=== PATIENT | female | born 1965 | race Caucasian/White ===

== ENCOUNTER → 2018-01-05 09:12 | Outpatient (CLI) | payer OTHER, SELFPAY ==
--- NOTE | 2018-01-05 | DI.RAD.S_ITS ---
PROCEDURE: XR CHEST 2V INDICATIONS: Malignant neoplasm of endometrium TECHNIQUE: 2 views of the chest were acquired. COMPARISON: [facility], , CHEST 1 VIEW, 09/03/2017, 12:42. FINDINGS: Surgical changes and devices: Left-sided port with tip overlying the atrial caval junction. Lateral loop in the tubing is no longer seen and the port may have been revised since last exam. Lungs and pleura: No pleural effusions or pneumothorax. Lungs are clear. Mediastinum: Mediastinal contours are normal. Heart size is normal. Bones and chest wall: No suspicious bony abnormalities. Soft tissues appear unremarkable. IMPRESSION: No acute cardiopulmonary abnormality. Left-sided port appears intact. Dictated by: Flash Robins M.D. on 01/05/2018 at 9:44 Approved by: Flash Robins M.D. on 01/05/2018 at 9:47
== END ==
PROVIDERS: PCP Family Medicine; Visit Provider Nurse Practitioner Gerontology
DX: C54.1 Malignant neoplasm of endometrium (principal)
CPT/HCPCS: 71046

== ENCOUNTER → 2018-01-07 07:40 | Outpatient (CLI) | payer OTHER, SELFPAY ==
--- NOTE | 2018-01-07 | DI.RAD.S_ITS ---
PROCEDURE: FL CATHETER PATENCY COMPARISON: [facility], [place], XR CHEST 2V, 01/05/2018, 9:04. INDICATIONS: PORT NOT FUNCTIONING FINDINGS: Imaging of the catheters shows no kinks. Tip of the catheter appears to be in the atrium however recent prior chest x-ray shows the tip at the atrial caval junction. With injection of contrast material, there is no extravasation at the port and the catheter is patent with flow away from the catheter tip documented. Blood was evident on aspiration after the injection. Catheter was then flushed by the attending nurse. IMPRESSION: Normal catheter patency Dictated by: Flash Robins M.D. on 01/07/2018 at 8:50 Approved by: Flash Robins M.D. on 01/07/2018 at 8:53
== END ==
PROVIDERS: PCP Family Medicine; Visit Provider Surgery
DX: Z45.2 Encounter for adjustment and management of vascular access device (principal)
CPT/HCPCS: 76000

== ENCOUNTER → 2018-01-27 09:12 | Outpatient (CLI) | payer OTHER, SELFPAY ==
[2018-01-27 10:33] LABS: Alanine Aminotransferase 69 IU/L (9-52); Albumin 4.5 g/dL (3.5-5.0); Albumin Globulin Ratio 1.3 (1.0-2.8); Alkaline Phosphatase 157 U/L (38-126); Aspartate Aminotransferase 54 IU/L (14-36); BUN Creatinine Ratio 21.7 (6-22); Bilirubin Total 1.2 mg/dL (0.2-1.3); Blood Urea Nitrogen 13 mg/dL (7-17); Calcium 9.1 mg/dL (8.4-10.2); Carbon Dioxide 30 mmol/L (22-32); Chloride 95 mmol/L (98-107); Cholesterol 250 mg/dL (140-199); Estimated Glomerular Filt Rate > 60.0 mL/min (>60); Globulin 3.4 g/dL (1.7-4.1); Glucose 286 mg/dL (70-100); HDL Cholesterol 37 mg/dL (40-60); HEMOLYSIS < 15 (0-50); Potassium 3.9 mmol/L (3.4-5.1); Sodium 135 mmol/L (137-145); Total Protein 7.9 g/dL (6.3-8.2); Triglycerides 490 mg/dL (35-150)
== END ==
PROVIDERS: PCP Family Medicine; Visit Provider Family Medicine
DX: R73.9 Hyperglycemia, unspecified (principal); E78.5 Hyperlipidemia, unspecified
CPT/HCPCS: 36415; 80053; 80061; 83036

== ENCOUNTER → 2018-03-10 09:47 | Outpatient (CLI) | payer OTHER, SELFPAY ==
--- NOTE | 2018-03-10 10:36 | DI.CT.S_ITS ---
PROCEDURE: CT ABDOMEN PELVIS W CON INDICATIONS: measure response to treatment. Restaging ovarian cancer TECHNIQUE: After the administration of oral and intravenous contrast, 5 mm thick sections acquired from the diaphragms to the symphysis. 5 mm thick coronal and sagittal reformats were performed. For radiation dose reduction, the following was used: automated exposure control, adjustment of mA and/or kV according to patient size. COMPARISON: [facility], CT, ABDOMEN/PELVIS WITH CONTRAST, 05/06/2017, 8:04. [facility], [place], PET/CT SKULL BASE TO MID THIGH, 07/18/2017, 9:52. FINDINGS: Image quality: Excellent. ABDOMEN: Lung bases: Lung bases are clear. Heart size is normal. Solid organs: Liver is enlarged and demonstrates diffusely decreased density, indicating fatty infiltration. Gallbladder is partially decompressed. Biliary system is non-dilated. Pancreas enhances normally. Spleen is normal in size and enhancement. No adrenal nodules. Kidneys are normal in size and enhancement, without hydronephrosis. Peritoneum and bowel: Stomach, small bowel, and colon loops are normal in caliber and wall thickness. No free fluid or air. Normal appendix. Nodes and vessels: No retroperitoneal or mesenteric adenopathy. Aorta and inferior vena cava are normal in caliber. Miscellaneous: No ventral hernias. PELVIS: Genitourinary: Bladder wall thickness is normal. There are 2 new cystic foci within the left adnexa measuring 28 mm and 16 mm. There is a 13 mm cystic focus within the right adnexa. Status post hysterectomy. Miscellaneous: No inguinal hernias or adenopathy. Bones: No suspicious bony lesions. No change in sclerosis adjacent to the left sacroiliac joint. No vertebral body compression fractures. IMPRESSION: 1. Cystic low-density bilateral adnexal foci. If the patient is status post oophorectomy, these should be treated as recurrent malignancy until proven otherwise. However, if the ovaries have not been resected, follicular cysts could produce this appearance, and could be followed up with a 6 week ultrasound. 2. Hepatic stent stenosis. 3. No change in left sacroiliitis. Dictated by: Lynn Martines M.D. on 03/10/2018 at 11:20 Approved by: Lynn Martines M.D. on 03/10/2018 at 11:25
== END ==
PROVIDERS: PCP Family Medicine; Visit Provider Internal Medicine Hematology & Oncology
DX: C54.1 Malignant neoplasm of endometrium (principal)
CPT/HCPCS: 74177; Q9967

== ENCOUNTER → 2018-04-21 14:55 | Outpatient (CLI) | payer OTHER, SELFPAY ==
[2018-04-21 15:49] LABS: Add Manual Diff / Slide Review NO; Basophils Percent Auto 0.2 % (0-2); Eosinophils Percent Auto 4.5 % (2-4); Hematocrit 31.4 % (36-46); Hemoglobin 10.8 g/dL (12.0-16.0); Lymphocytes Percent Auto 15.7 % (25-40); Mean Corpuscular HGB Conc 34.3 % (30-36); Mean Corpuscular Volume 93.5 fL (80-100); Monocytes Percent Auto 8.2 % (3-14); Neutrophils Absolute Auto 2900 /uL (3000-5900); Neutrophils Percent Auto 71.4 % (50-75); Platelet Count 215 X10^3/uL (150-400); Red Blood Cell Count 3.36 X10^6/uL (4.0-5.2); Red Cell Distribution Width 16.8 % (11.6-14.8); White Blood Cell Count 4.1 X10^3/uL (4.5-11.0)
[2018-04-21 15:50] LABS: HEMOLYSIS < 15 (0-50)
[2018-04-21 15:57] LABS: BUN Creatinine Ratio 21.7 (6-22); Blood Urea Nitrogen 13 mg/dL (7-17); Calcium 9.3 mg/dL (8.4-10.2); Carbon Dioxide 29 mmol/L (22-32); Chloride 100 mmol/L (98-107); Estimated Glomerular Filt Rate > 60.0 mL/min (>60); Glucose 171 mg/dL (70-100); Potassium 3.6 mmol/L (3.4-5.1); Sodium 140 mmol/L (137-145)
[2018-04-21 17:10] LABS: HEMOLYSIS < 15 (0-50); Iron 67 ug/dL (37-170)
[2018-04-21 17:22] LABS: Percent Iron Saturation 21 % (15-50); Total Iron Binding Capacity 315 ug/dL (265-497); Transferrin 262 mg/dL (206-381)
--- NOTE | 2018-04-23 14:38 | PC.NURSE ---
ADDENDUM FROM [employer]/[facility] RESULTS OF MLH1 METHYLATION AND BRAF V600F FAXED TO DR. MANCINI AT @ [employer] [phone] ON 04/23/2018.
== END ==
PROVIDERS: PCP Family Medicine; Visit Provider Internal Medicine Hematology & Oncology
DX: C56.9 Malignant neoplasm of unspecified ovary (principal); D64.81 Anemia due to antineoplastic chemotherapy
CPT/HCPCS: 36415; 80048; 82728; 83540; 83550; 85025

== ENCOUNTER 2018-05-20 08:14 | Day surgery (SDC) | payer OTHER, SELFPAY ==
[2018-05-13 12:45] VITALS: BMI 42.6
[2018-05-20] VITALS (8 sets, daily range): BP systolic 101–119; BP diastolic 63–77; PULSE 79–90; RESP 10–18; TEMP 36.1–37.1; O2SAT 95–99; BMI 40.0
--- NOTE | 2018-05-20 10:05 | PM.HP.1 ---
History of Present Illness Date Patient Seen: 05/20/18 Time Patient Seen: 10:05 Chief complaint: [id number] PORT-A-CATH REMOVAL *[id number]* Narrative: Wonderful 52-year-old lady who is known to me from prior visits. 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 She desires to have her power port removed today. She denies any pain in her chest. She does have 1 radiation treatment to go on Friday. Patient History Medical History Adenocarcinoma (Acute) Asthma (Acute) Chronic cough (Acute) Endometriosis (Acute) Exercise-induced asthma (Acute) Frequent common colds (Acute) H/O wisdom tooth extraction (Acute) Heartburn (Acute) History of cellulitis (Acute) History of deviated nasal septum (Acute) Art syndrome (Acute) Morbid obesity (Acute) Port-A-Cath in place (Acute) Rash (Acute) Sinus drainage (Acute) Stress incontinence (Acute) Surgical History H/O bilateral oophorectomy (Acute ~08/04/17) H/O myomectomy (Acute ~12/2016) History of abdominal surgery (Acute ~1995) History of biopsy (Acute) S/P laparoscopic supracervical hysterectomy (Acute ~12/2016) Status post excisional biopsy (Acute) Family & Social History Family History: Reviewed 05/20/18 by Yissel Ambrosio MD Social History: household members spouse Tobacco & Substance use: Smoking Status Never smoker Meds Home Medications Medication Instructions Recorded Confirmed Type albuterol sulfate [Ventolin HFA] 2 puff INH Q2-6H PRN #0 MDD 325 11/26/16 05/13/18 History beclomethasone dipropionate [Qvar] 1 puff INH QDAY #0 11/26/16 05/20/18 History montelukast [Singulair] 10 mg PO HS #0 11/26/16 05/20/18 History acetaminophen 650 mg PO PRN PRN #0 05/19/17 05/13/18 History ranitidine HCl 150 mg PO DAILY PRN 01/19/18 05/13/18 History metformin 1,000 mg PO BID 02/09/18 05/20/18 History ondansetron 8 mg SUBLINGUAL Q6HP PRN #30 tab 02/09/18 05/13/18 Rx Allergies Allergy/AdvReac Type Severity Reaction Status Date / Time gold Au 198 Allergy Severe Rash Verified 05/13/18 13:04 nickel [NICKEL] Allergy Severe CONTACT Verified 05/13/18 13:04 DERMATITIS quaternium 15 [QUATERNIUM 15] Allergy Severe CONTACT Verified 05/13/18 13:04 DERMATITIS Sulfa (Sulfonamide Allergy Severe hives Verified 05/13/18 13:04 Antibiotics) [SULFA (SULFONAMIDE ANTIBIOTICS)] Review of Systems Review of Systems All systems reviewed & are unremarkable except as noted in HPI and below Exam Vital Signs (past 8 hours): - 05/20/18 08:37 Temperature 98.8 F Pulse Rate 87 Respiratory Rate 18 Blood Pressure 108/69 Pulse Oximetry 96 Oxygen Delivery Method Room Air Narrative Exam Narrative: Pleasant 52 a lady in no obvious distress HEENT: Normocephalic and atraumatic, pupils equal round reactive to light accommodation with anicteric sclera Lungs: Clear to auscultation bilaterally Heart: Regular rate and rhythm without murmur rub or gallop Abdomen: Soft, radiation skin changes are noted including a couple of open but superficial lesions. No evidence of gross infection or inflammation. Extremities: Warm and well perfused and without edema Assessment & Plan Plan: Assessment/Plan Narrative: Matilde has completed her treatment and no longer requires her [id number]-Xycm. We discussed the risks and benefits of removing it today the operating room and she has expressed a desire to complete the procedure
--- NOTE | 2018-05-20 10:07 | SUR.OPER ---
Supine on padded OR bed, head on pillow, arms secured on padded arm boards at <90 degrees abduction, legs uncrossed, safety belt at thigh, tape over blanket over lower legs.
--- NOTE | 2018-05-20 10:09 | P.HP_ITS ---
History of Present Illness Date Patient Seen: 05/20/18 Time Patient Seen: 10:05 Chief complaint: [id number] PORT-A-CATH REMOVAL *[id number]* Narrative: Wonderful 52-year-old lady who is known to me from prior visits. 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 She desires to have her power port removed today. She denies any pain in her chest. She does have 1 radiation treatment to go on Friday. Patient History Medical History Adenocarcinoma (Acute) Asthma (Acute) Chronic cough (Acute) Endometriosis (Acute) Exercise-induced asthma (Acute) Frequent common colds (Acute) H/O wisdom tooth extraction (Acute) Heartburn (Acute) History of cellulitis (Acute) History of deviated nasal septum (Acute) Art syndrome (Acute) Morbid obesity (Acute) Port-A-Cath in place (Acute) Rash (Acute) Sinus drainage (Acute) Stress incontinence (Acute) Surgical History H/O bilateral oophorectomy (Acute ~08/04/17) H/O myomectomy (Acute ~12/2016) History of abdominal surgery (Acute ~1995) History of biopsy (Acute) S/P laparoscopic supracervical hysterectomy (Acute ~12/2016) Status post excisional biopsy (Acute) Family & Social History Family History: Reviewed 05/20/18 by Yissel Ambrosio MD Social History: household members spouse Tobacco & Substance use: Smoking Status Never smoker Meds Home Medications Medication Instructions Recorded Confirmed Type albuterol sulfate [Ventolin HFA] 2 puff INH Q2-6H PRN #0 MDD 325 11/26/1605/13 History beclomethasone dipropionate [Qvar] 1 puff INH QDAY #0 11/26/16 05/20/18 History montelukast [Singulair] 10 mg PO HS #0 11/26/16 05/20/18 History acetaminophen 650 mg PO PRN PRN #0 05/19/17 05/13/18 History ranitidine HCl 150 mg PO DAILY PRN 01/19/18 05/13/18 History metformin 1,000 mg PO BID 02/09/18 05/20/18 History ondansetron 8 mg SUBLINGUAL Q6HP PRN #30 tab 02/09/18 05/13/18 Rx Allergies Allergy/AdvReac Type Severity Reaction Status Date / Time gold Au 198 Allergy Severe Rash Verified 05/13/18 13:04 nickel [NICKEL] Allergy Severe CONTACT Verified 05/13/18 13:04 DERMATITIS quaternium 15 [QUATERNIUM 15] Allergy Severe CONTACT Verified 05/13/18 13:04 DERMATITIS Sulfa (Sulfonamide Allergy Severe hives Verified 05/13/18 13:04 Antibiotics) [SULFA (SULFONAMIDE ANTIBIOTICS)] Review of Systems Review of Systems All systems reviewed & are unremarkable except as noted in HPI and below Exam Vital Signs (past 8 hours): - 05/20/18 08:37 Temperature 98.8 F Pulse Rate 87 Respiratory Rate 18 Blood Pressure 108/69 Pulse Oximetry 96 Oxygen Delivery Method Room Air Narrative Exam Narrative: Pleasant 52 a lady in no obvious distress HEENT: Normocephalic and atraumatic, pupils equal round reactive to light accommodation with anicteric sclera Lungs: Clear to auscultation bilaterally Heart: Regular rate and rhythm without murmur rub or gallop Abdomen: Soft, radiation skin changes are noted including a couple of open but superficial lesions. No evidence of gross infection or inflammation. Extremities: Warm and well perfused and without edema Assessment & Plan Plan: Assessment/Plan Narrative: Matilde has completed her treatment and no longer requires her [id number]. We discussed the risks and benefits of removing it today the operating room and she has expressed a desire to complete the procedure
[2018-05-20] MEDS: LIDOCAINE 1% W/EPI INJ 20 ML INJ (10:23)
[2018-05-20] MEDS: BUPIVACAINE 0.5% (PF) VIAL 10 ML INJ (10:24)
[2018-05-20] MEDS: CEFAZOLIN 2 GM/100 ML FROZ.PIGGY IV (10:29)
--- NOTE | 2018-05-20 10:59 | PM.OP.1 ---
Operative Date/Time/Diagnoses Date of procedure: 05/20/18 Time of procedure: 10:59 Pre-op diagnosis: Uterine cancer Post-op diagnosis: same Procedure & Clinicians Procedure: Power port removed Same procedure as scheduled: Yes Indications: Chemotherapy completed Surgeon: Yissel Ambrosio Anesthesia Type: General (Dr. Swartz) Operative Notes Findings: Power port in good repair Closure Type: primary Estimated Blood Loss (mL): 2 Procedure in detail: After obtaining informed consent, the patient was brought to the operating room and placed in the supine position on the operating table. Following successful induction of IV sedation with monitored anesthesia care, the chest was prepped and draped in the standard surgical fashion. A timeout was held per SCOAP protocol. Following infiltration with local anesthetic to create a field block, the existing healed incision was repeated. This was carried down through the skin and subcutaneous tissue to reveal the tubing of the implanted central venous device. The tubing was carefully dissected free from surrounding structures and delivered into the field. Pressure was held at the deltopectoral groove to prevent air embolus and backbleeding. After 5 minutes time, we continued with dissection of the remaining portion of the port. The reservoir itself remained in the pocket and has been incorporated into the tissue. This was carefully dissected free with judicious use of a scalpel. It was delivered into the field as a single piece with tubing attached. The incision was checked for hemostasis and irrigated with warm saline solution. Once we were satisfied that all was clean and dry, it was closed in 2 layers with Vicryl Monocryl sutures. Dermabond was applied to the skin incision. All sponge, needle, and instrument counts were correct at the conclusion of the case. The patient was allowed to awaken from sedation without difficulty and taken to the post anesthesia care unit in good condition. Complications: none Condition: stable Disposition: PACU Plan for aftercare: 1. Discharge to home 2. Follow up with me as needed
== END 2018-05-20 11:40 | disposition home or self-care (01) ==
PROVIDERS: PCP Family Medicine; Visit Provider Surgery
PROC: (CPT 36590; principal; 2018-05-20 09:15)
DX: Z45.2 Encounter for adjustment and management of vascular access device (principal); C55 Malignant neoplasm of uterus, part unspecified; J45.909 Unspecified asthma, uncomplicated; E11.9 Type 2 diabetes mellitus without complications; Z79.84 Long term (current) use of oral hypoglycemic drugs
CPT/HCPCS: 36590; J0690; J2250; J2704; J3010

== ENCOUNTER → 2018-07-31 13:07 | Outpatient (CLI) | payer OTHER, SELFPAY ==
--- NOTE | 2018-07-31 | DI.RAD.S_ITS ---
This blank DEXA report has been sent in error by the PACS system. The correct and complete report will be forthcoming in 1-2 days. Thank you for your patience and understanding. Dictated by: Teagan Swift MD, PhD on 08/01/2018 at 9:29 Approved by: Teagan Swift MD, PhD on 08/01/2018 at 9:29
== END ==
PROVIDERS: Family Provider Family Medicine; PCP Family Medicine; Visit Provider Family Medicine
DX: C54.1 Malignant neoplasm of endometrium (principal); Z78.0 Asymptomatic menopausal state; K52.0 Gastroenteritis and colitis due to radiation; Z90.722 Acquired absence of ovaries, bilateral
CPT/HCPCS: 77080

== ENCOUNTER → 2018-08-24 14:08 | Outpatient (CLI) | payer OTHER, SELFPAY ==
--- NOTE | 2018-08-24 | DI.MG.S_ITS ---
BILATERAL DIGITAL SCREENING MAMMOGRAM 3D/2D WITH CAD: 08/24/2018 CLINICAL: Routine screening. Comparison is made to exams dated: 11/13/2016 mammogram and 11/07/2014 mammogram - [facility]. There are scattered fibroglandular elements in both breasts. Current study was also evaluated with a Computer Aided Detection (CAD) system. No significant masses, calcifications, or other findings are seen in either breast. There has been no significant interval change. IMPRESSION: NEGATIVE There is no mammographic evidence of malignancy. A 1 year screening mammogram is recommended. This exam was interpreted at Station ID: [id number]. NOTE: For mammograms, a report in lay terms will be sent to the patient. Approximately 15% of breast malignancies will not be visualized mammographically. In the management of a palpable breast mass, a negative mammogram must not discourage biopsy of a clinically suspicious lesion. Electronically Signed By: Cinda ellis/lionel:08/24/2018 16:17:43 copy to: ANISH MURILLO letter sent: Normal Exam ACR BI-RADS Category 1: Negative [id number]
--- NOTE | 2018-08-24 14:11 | DI.CT.S_ITS ---
PROCEDURE: CT CHEST ABD PEL W CON INDICATIONS: restage TECHNIQUE: After the administration of oral and intravenous contrast, 5 mm thick sections acquired from the lung apices to the symphysis. 5 mm coronal and sagittal reformats were performed, with additional 7 mm coronal MIP reformats through the lungs. For radiation dose reduction, the following was used: automated exposure control, adjustment of mA and/or kV according to patient size. COMPARISON: [facility], CT, THORAX WITH CONTRAST, 06/19/2017, 7:02. [facility], [place], PET NECK TO MID THIGH, 03/27/2018, 9:44. [facility], CT, CT ABDOMEN PELVIS WITH CONTRAST, 03/19/2018, 16:09. FINDINGS: Image quality: Excellent. CHEST: Lungs and pleura: No acute airspace opacities. No pleural effusions or pneumothorax. Central and peripheral airways appear patent and normal in caliber. Mediastinum: Heart size is normal. No pericardial effusion. No mediastinal or hilar adenopathy by size criteria. Thoracic aorta and central pulmonary arteries are normal in size. Esophagus is normal in caliber. No hiatal hernia. Chest wall: No axillary or supraclavicular adenopathy by size criteria. Thyroid gland is unremarkable. ABDOMEN: Solid organs: Liver is enlarged with steatosis. Gallbladder is contracted but grossly unremarkable. Biliary system is non dilated. Pancreas enhances normally. Spleen is normal in size and enhancement. No adrenal nodules. Kidneys demonstrate normal size and enhancement, without hydronephrosis. Peritoneum and bowel: Bowel loops demonstrate normal wall thickness and caliber. No free fluid or air. Nodes and vessels: No retroperitoneal or mesenteric adenopathy by size criteria. Aorta and inferior vena cava are normal in size. Miscellaneous: Fat-containing umbilical hernia is present. PELVIS: Genitourinary: Bladder wall thickness is normal. Miscellaneous: No inguinal hernias or adenopathy. Bones: No suspicious bony lesions. No vertebral body compression fractures. IMPRESSION: 1. Low-attenuation bilateral pelvic sidewall foci, unchanged compared to prior exam. 2. Unchanged bilateral low-attenuation pelvic sidewall foci as above. As previously identified, these could represent areas of seroma or potential recurrent malignancy. Dictated by: Shanice Kaminski M.D. on 08/24/2018 at 16:15 Approved by: Shanice Kaminski M.D. on 08/24/2018 at 16:19
[2018-08-24 14:25] LABS: Add Manual Diff / Slide Review NO; Basophils Absolute Auto 0 /uL (0-100); Basophils Percent Auto 0.6 % (0-2); Eosinophils Absolute Auto 300 /uL (0-450); Eosinophils Percent Auto 4.4 % (2-4); Hematocrit 35.7 % (36-46); Hemoglobin 11.8 g/dL (12.0-16.0); Lymphocytes Absolute Auto 900 /uL (1100-4500); Lymphocytes Percent Auto 14.3 % (25-40); Mean Corpuscular Hemoglobin 29.3 PG (26-34); Mean Corpuscular Volume 88.8 fL (80-100); Monocytes Absolute Auto 500 /uL (0-900); Monocytes Percent Auto 8.9 % (3-14); Neutrophils Absolute Auto 4400 /uL (1500-7000); Neutrophils Percent Auto 71.8 % (50-75); Platelet Count 308 X10^3/uL (150-400); Red Blood Cell Count 4.02 X10^6/uL (4.0-5.2); Red Cell Distribution Width 15.9 % (11.6-14.8); White Blood Cell Count 6.2 X10^3/uL (4.5-11.0)
[2018-08-24 14:42] LABS: Alanine Aminotransferase 48 IU/L (9-52); Albumin 4.6 g/dL (3.5-5.0); Albumin Globulin Ratio 1.4 (1.0-2.8); Alkaline Phosphatase 107 U/L (38-126); Aspartate Aminotransferase 33 IU/L (14-36); BUN Creatinine Ratio 23.3 (6-22); Bilirubin Total 0.4 mg/dL (0.2-1.3); Blood Urea Nitrogen 14 mg/dL (7-17); Calcium 9.3 mg/dL (8.4-10.2); Carbon Dioxide 26 mmol/L (22-32); Chloride 101 mmol/L (98-107); Estimated Glomerular Filt Rate > 60.0 mL/min (>60); Globulin 3.2 g/dL (1.7-4.1); Glucose 129 mg/dL (70-100); HEMOLYSIS < 15 (0-50); Potassium 3.7 mmol/L (3.4-5.1); Sodium 138 mmol/L (137-145); Total Protein 7.8 g/dL (6.3-8.2)
[2018-08-24 15:12] LABS: Cancer Antigen 125 < 6 U/mL (0-35)
== END ==
PROVIDERS: Internal Medicine Hematology & Oncology; Family Provider Family Medicine; PCP Family Medicine; Visit Provider Family Medicine
DX: C54.1 Malignant neoplasm of endometrium (principal); Z12.31 Encounter for screening mammogram for malignant neoplasm of breast; D25.9 Leiomyoma of uterus, unspecified; K76.0 Fatty (change of) liver, not elsewhere classified; K42.9 Umbilical hernia without obstruction or gangrene
CPT/HCPCS: 36415; 71260; 74177; 77063; 77067; 80053; 85025; 86304; Q9967

== ENCOUNTER → 2018-10-23 08:29 | Outpatient (CLI) | payer OTHER, SELFPAY ==
[2018-10-23 09:13] LABS: Hemoglobin A1C% w Est Avg Glu 6.3 % (4.0-6.0)
[2018-10-23 09:53] LABS: Add Manual Diff / Slide Review NO; Basophils Absolute Auto 0 /uL (0-100); Basophils Percent Auto 0.3 % (0-2); Eosinophils Absolute Auto 300 /uL (0-450); Eosinophils Percent Auto 6.5 % (2-4); Hematocrit 36.4 % (36-46); Hemoglobin 12.1 g/dL (12.0-16.0); Lymphocytes Absolute Auto 700 /uL (1100-4500); Mean Corpuscular HGB Conc 33.2 % (30-36); Mean Corpuscular Volume 87.2 fL (80-100); Monocytes Absolute Auto 500 /uL (0-900); Neutrophils Absolute Auto 3600 /uL (1500-7000); Neutrophils Percent Auto 70.2 % (50-75); Platelet Count 296 X10^3/uL (150-400); Red Blood Cell Count 4.17 X10^6/uL (4.0-5.2); Red Cell Distribution Width 15.6 % (11.6-14.8); White Blood Cell Count 5.2 X10^3/uL (4.5-11.0)
[2018-10-23 10:06] LABS: TSH w/ Reflex to FT4 2.47 uIU/mL (0.47-4.68)
== END ==
PROVIDERS: PCP Family Medicine; Visit Provider Family Medicine
DX: E78.5 Hyperlipidemia, unspecified (principal); E11.9 Type 2 diabetes mellitus without complications; Z00.00 Encounter for general adult medical examination without abnormal findings
CPT/HCPCS: 36415; 83036; 84443; 85025

== ENCOUNTER → 2018-12-01 15:15 | Outpatient (CLI) | payer OTHER, SELFPAY ==
--- NOTE | 2018-12-01 15:17 | DI.CT.S_ITS ---
PROCEDURE: CT CHEST ABD PEL W CON INDICATIONS: ovary endometrial cancer, restaging TECHNIQUE: After the administration of oral and intravenous contrast, 5 mm thick sections acquired from the lung apices to the symphysis. 5 mm coronal and sagittal reformats were performed, with additional 7 mm coronal MIP reformats through the lungs. For radiation dose reduction, the following was used: automated exposure control, adjustment of mA and/or kV according to patient size. COMPARISON: [facility], [place], PET NECK TO MID THIGH, 03/27/2018, 9:44. [facility], CT, CT ABDOMEN PELVIS WITH CONTRAST, 03/19/2018, 16:09. [facility], CT, CT ABDOMEN PELVIS W CON, 03/10/2018, 10:49. [facility], [place], PET/CT SKULL BASE TO MID THIGH, 07/18/2017, 9:52. [facility], CT, CT CHEST ABD PEL W CON, 08/24/2018, 15:12. FINDINGS: Image quality: Excellent. CHEST: Lungs and pleura: No acute consolidation. No pleural effusions or pneumothorax. Central and peripheral airways appear patent and normal in caliber. Mediastinum: Heart size is normal. No pericardial effusion. No mediastinal or hilar adenopathy by size criteria. Thoracic aorta and central pulmonary arteries are normal in size. Esophagus is normal in caliber. No hiatal hernia. Chest wall: No axillary or supraclavicular adenopathy by size criteria. Thyroid gland negative. ABDOMEN: Solid organs: Hepatic steatosis is present. No focal hepatic lesion identified. Gallbladder unremarkable. Biliary system is non dilated. Pancreas enhances normally. Spleen is normal in size and enhancement. No adrenal nodules. Kidneys demonstrate normal size and enhancement, without hydronephrosis. Peritoneum and bowel: Bowel loops demonstrate normal wall thickness and caliber. No free fluid or air. Nodes and vessels: No retroperitoneal or mesenteric adenopathy by size criteria. Aorta and inferior vena cava are normal in size. Miscellaneous: No ventral hernias. PELVIS: Genitourinary: Bladder wall thickness is normal. Previous identified low attenuation bilateral external iliac lesions are unchanged in size and appearance. Miscellaneous: No inguinal hernias or adenopathy. Bones: No suspicious bony lesions. No vertebral body compression fractures. IMPRESSION: Overall, stable examination since 08/24/18 Unchanged appearance of bilateral external iliac low attenuation lesions since the prior study. Elsewhere, no evidence of active metastatic disease. Hepatic steatosis. Dictated by: Matthew Christianson M.D. on 12/01/2018 at 17:02 Approved by: Matthew Christianson M.D. on 12/01/2018 at 17:08
[2018-12-01 16:18] LABS: Add Manual Diff / Slide Review NO; Basophils Absolute Auto 0 /uL (0-100); Basophils Percent Auto 0.4 % (0-2); Eosinophils Absolute Auto 300 /uL (0-450); Eosinophils Percent Auto 5.3 % (2-4); Hematocrit 35.1 % (36-46); Hemoglobin 11.9 g/dL (12.0-16.0); Lymphocytes Absolute Auto 900 /uL (1100-4500); Lymphocytes Percent Auto 17.5 % (25-40); Mean Corpuscular HGB Conc 33.8 % (30-36); Mean Corpuscular Hemoglobin 29.5 PG (26-34); Mean Corpuscular Volume 87.2 fL (80-100); Monocytes Absolute Auto 400 /uL (0-900); Neutrophils Absolute Auto 3600 /uL (1500-7000); Neutrophils Percent Auto 68.8 % (50-75); Platelet Count 301 X10^3/uL (150-400); Red Blood Cell Count 4.02 X10^6/uL (4.0-5.2); Red Cell Distribution Width 15.2 % (11.6-14.8); White Blood Cell Count 5.2 X10^3/uL (4.5-11.0)
[2018-12-01 16:39] LABS: Alanine Aminotransferase 49 IU/L (9-52); Albumin 4.3 g/dL (3.5-5.0); Albumin Globulin Ratio 1.5 (1.0-2.8); Alkaline Phosphatase 117 U/L (38-126); Aspartate Aminotransferase 34 IU/L (14-36); BUN Creatinine Ratio 25.7 (6-22); Bilirubin Total 0.4 mg/dL (0.2-1.3); Blood Urea Nitrogen 18 mg/dL (7-17); Calcium 9.3 mg/dL (8.4-10.2); Carbon Dioxide 26 mmol/L (22-32); Chloride 100 mmol/L (98-107); Estimated Glomerular Filt Rate > 60.0 mL/min (>60); Globulin 2.8 g/dL (1.7-4.1); Glucose 212 mg/dL (70-100); HEMOLYSIS < 15 (0-50); Sodium 138 mmol/L (137-145); Total Protein 7.1 g/dL (6.3-8.2)
[2018-12-01 17:09] LABS: Cancer Antigen 125 6 U/mL (0-35)
== END ==
PROVIDERS: PCP Family Medicine; Visit Provider Internal Medicine Hematology & Oncology
DX: C56.9 Malignant neoplasm of unspecified ovary (principal); K76.0 Fatty (change of) liver, not elsewhere classified
CPT/HCPCS: 36415; 71260; 74177; 80053; 85025; 86304; Q9967

== ENCOUNTER → 2019-03-09 16:53 | Outpatient (CLI) | payer OTHER, SELFPAY ==
[2019-03-09 18:04] LABS: Free T4, Direct Thyroxine 1.05 ng/dL (0.78-2.19)
[2019-03-09 18:19] LABS: Thyroid Stimulating Hormone 3.14 uIU/mL (0.47-4.68)
== END ==
PROVIDERS: PCP Family Medicine; Visit Provider Obstetrics & Gynecology
DX: R61 Generalized hyperhidrosis (principal)
CPT/HCPCS: 36415; 84439; 84443

== ENCOUNTER → 2019-06-22 14:46 | Outpatient (CLI) | payer OTHER, SELFPAY ==
--- NOTE | 2019-06-22 14:49 | DI.CT.S_ITS ---
PROCEDURE: CT CHEST ABD PEL W CON INDICATIONS: ovarian cancer follow up TECHNIQUE: After the administration of oral and intravenous contrast, 5 mm thick sections acquired from the lung apices to the symphysis. 5 mm coronal and sagittal reformats were performed, with additional 7 mm coronal MIP reformats through the lungs. For radiation dose reduction, the following was used: automated exposure control, adjustment of mA and/or kV according to patient size. COMPARISON: [facility], CT, CT CHEST ABD PEL W CON, 12/01/2018, 16:38. FINDINGS: Image quality: Excellent. CHEST: Lungs and pleura: No acute airspace opacities. No pleural effusions or pneumothorax. Central and peripheral airways appear patent and normal in caliber. Mediastinum: Heart size is normal. No pericardial effusion. No mediastinal or hilar adenopathy by size criteria. Thoracic aorta and central pulmonary arteries are normal in size. Esophagus is normal in caliber. No hiatal hernia. Chest wall: No axillary or supraclavicular adenopathy by size criteria. Thyroid gland is unremarkable. ABDOMEN: Solid organs: Liver is normal in size and enhancement. Stable appearance of diffuse hypoattenuation of the liver compatible with hepatic steatosis. No focal intrahepatic abnormality is seen. Gallbladder is normal. Biliary system is non dilated. Pancreas enhances normally. Spleen is normal in size and enhancement. No adrenal nodules. Kidneys demonstrate normal size and enhancement, without hydronephrosis. Peritoneum and bowel: Bowel loops demonstrate normal wall thickness and caliber. No free fluid or air. Normal appendix. Nodes and vessels: No retroperitoneal or mesenteric adenopathy by size criteria. Aorta and inferior vena cava are normal in size. Miscellaneous: Small fat containing umbilical hernia without acute inflammation. Stable postoperative changes from previous ventral midline surgical incision of the lower abdomen. PELVIS: Genitourinary: Bladder wall thickness is normal. Stable bilateral external iliac hypoattenuation lesions along the pelvic sidewall measuring approximately 2.1 cm on the left and 1.2 cm on the right. No new lesions identified. Miscellaneous: No inguinal hernias or adenopathy. Bones: No suspicious bony lesions. No vertebral body compression fractures. IMPRESSION: 1. CT chest, abdomen, and pelvis without acute abnormalities. No interval change since 12/01/18 evaluation. 2. Stable size and appearance of bilateral external iliac low attenuation lesions. 3. Otherwise, no evidence for active metastatic disease. 4. Hepatic steatosis. Dictated by: Alejandro Granado M.D. on 06/22/2019 at 18:26 Approved by: Alejandro Granado M.D. on 06/22/2019 at 18:36
[2019-06-22 15:25] LABS: Add Manual Diff / Slide Review NO; Basophils Absolute Auto 0 /uL (0-100); Basophils Percent Auto 0.5 % (0-2); Eosinophils Absolute Auto 300 /uL (0-450); Eosinophils Percent Auto 4.6 % (2-4); Hematocrit 38.8 % (36-46); Lymphocytes Absolute Auto 1500 /uL (1100-4500); Lymphocytes Percent Auto 21.8 % (25-40); Mean Corpuscular HGB Conc 33.6 % (30-36); Mean Corpuscular Hemoglobin 29.8 PG (26-34); Mean Corpuscular Volume 88.6 fL (80-100); Monocytes Absolute Auto 500 /uL (0-900); Monocytes Percent Auto 7.4 % (3-14); Neutrophils Absolute Auto 4400 /uL (1500-7000); Neutrophils Percent Auto 65.7 % (50-75); Platelet Count 298 X10^3/uL (150-400); Red Blood Cell Count 4.38 X10^6/uL (4.0-5.2); Red Cell Distribution Width 14.2 % (11.6-14.8); White Blood Cell Count 6.7 X10^3/uL (4.5-11.0)
[2019-06-22 15:52] LABS: Alanine Aminotransferase 45 IU/L (<35); Albumin 4.9 g/dL (3.5-5.0); Albumin Globulin Ratio 1.6 (1.0-2.8); Alkaline Phosphatase 112 U/L (38-126); Aspartate Aminotransferase 38 IU/L (14-36); BUN Creatinine Ratio 15.6 (6-22); Bilirubin Total 0.7 mg/dL (0.2-1.3); Blood Urea Nitrogen 14 mg/dL (7-17); Calcium 9.7 mg/dL (8.4-10.2); Carbon Dioxide 28 mmol/L (22-32); Chloride 100 mmol/L (98-107); Estimated Glomerular Filt Rate > 60.0 mL/min (>60); Glucose 98 mg/dL (70-100); HEMOLYSIS < 15 (0-50); Sodium 140 mmol/L (137-145); Total Protein 7.9 g/dL (6.3-8.2)
[2019-06-22 16:23] LABS: Cancer Antigen 125 6 U/mL (0-35)
== END ==
PROVIDERS: PCP Internal Medicine; Visit Provider Internal Medicine Hematology & Oncology
DX: C56.9 Malignant neoplasm of unspecified ovary (principal); K76.0 Fatty (change of) liver, not elsewhere classified; K42.9 Umbilical hernia without obstruction or gangrene; R19.09 Other intra-abdominal and pelvic swelling, mass and lump
CPT/HCPCS: 36415; 71260; 74177; 80053; 85025; 86304; Q9967

== ENCOUNTER → 2019-06-27 14:04 | Outpatient (CLI) | payer OTHER, SELFPAY | PROVIDERS: PCP Internal Medicine; Visit Provider Physician Assistant | DX: R30.0 Dysuria (principal) | CPT/HCPCS: 87077; 87086; 87186 ==

== ENCOUNTER → 2019-07-06 07:08 | Outpatient (CLI) | payer OTHER, SELFPAY ==
[2019-07-06 08:51] LABS: Alanine Aminotransferase 46 IU/L (<35); Aspartate Aminotransferase 37 IU/L (14-36); BUN Creatinine Ratio 21.7 (6-22); Blood Urea Nitrogen 13 mg/dL (7-17); Calcium 9.1 mg/dL (8.4-10.2); Carbon Dioxide 30 mmol/L (22-32); Chloride 100 mmol/L (98-107); Cholesterol 171 mg/dL (140-199); Estimated Glomerular Filt Rate > 60.0 mL/min (>60); Glucose 137 mg/dL (70-100); HDL Cholesterol 39 mg/dL (40-60); HEMOLYSIS < 15 (0-50); LDL Cholesterol Calculated 100 mg/dL (<100); Sodium 139 mmol/L (137-145); Triglycerides 161 mg/dL (35-150)
[2019-07-06 08:52] LABS: Hemoglobin A1C% w Est Avg Glu 6.2 % (4.0-6.0)
== END ==
PROVIDERS: PCP Internal Medicine; Visit Provider Internal Medicine
DX: E11.9 Type 2 diabetes mellitus without complications (principal); E78.2 Mixed hyperlipidemia
CPT/HCPCS: 36415; 80048; 80061; 83036; 84450; 84460

== ENCOUNTER → 2020-02-04 12:29 | Outpatient (CLI) | payer OTHER, SELFPAY ==
--- NOTE | 2020-02-04 12:30 | DI.CT.S_ITS ---
PROCEDURE: CT CHEST ABD PEL W CON INDICATIONS: ovary endometrial cancer, restaging TECHNIQUE: After the administration of oral and intravenous contrast, 5 mm thick sections acquired from the lung apices to the symphysis. 5 mm coronal and sagittal reformats were performed, with additional 7 mm coronal MIP reformats through the lungs. For radiation dose reduction, the following was used: automated exposure control, adjustment of mA and/or kV according to patient size. COMPARISON: [facility], CT, CT CHEST ABD PEL W CON, 06/22/2019, 16:14. FINDINGS: Image quality: Excellent. CHEST: Lungs and pleura: No acute airspace opacities. No pleural effusions or pneumothorax. Central and peripheral airways appear patent and normal in caliber. Mediastinum: Heart size is normal. No pericardial effusion. No mediastinal or hilar adenopathy by size criteria. Thoracic aorta and central pulmonary arteries are normal in size. Esophagus is normal in caliber. No hiatal hernia. Chest wall: No axillary or supraclavicular adenopathy by size criteria. Thyroid gland is unremarkable . ABDOMEN: Solid organs: Mild attic steatosis. No focal liver masses. Gallbladder is surgically absent. . Biliary system is non dilated. Pancreas enhances normally. Spleen is normal in size and enhancement. No adrenal nodules. Kidneys demonstrate normal size and enhancement, without hydronephrosis. Peritoneum and bowel: Bowel loops demonstrate normal wall thickness and caliber. No free fluid or air. Nodes and vessels: No retroperitoneal or mesenteric adenopathy by size criteria. Stable bilateral low-density iliac chain region lesions, possibly representing lymph nodes. On current image 95/2 is a 1.8 cm left iliac low-density nodular focus which previously measured 2.1 cm. On current image 94/2 is a 0.9 cm low-density right sided focus which previously measured 1.2 cm. No new or increasing iliac nodular foci are identified. No other abdominal or pelvic lymph nodes are seen. Aorta and inferior vena cava are normal in size. Miscellaneous: Small periumbilical hernia containing fat. PELVIS: Genitourinary: Bladder wall thickness is normal. Miscellaneous: No inguinal hernias or adenopathy. Remote hysterectomy. Bones: No suspicious bony lesions. Interval development of a mild to moderate L3 compression fracture which may be subacute. A central posterior disc protrusion at L4-L5 is slightly increased compared to the previous study. IMPRESSION: 1. No evidence of metastatic disease in the chest. 2. Remote hysterectomy. 3. Stable bilateral small iliac region low-attenuation lesions, possibly representing stable lymph nodes. 4. Interval mild to moderate L3 compression fracture, possibly subacute. 5. Slight interval increase in central posterior disc protrusion at L4-L5. Dictated by: Gerry Massey M.D. on 02/04/2020 at 15:20 Approved by: Gerry Massey M.D. on 02/04/2020 at 15:26
== END ==
PROVIDERS: PCP Internal Medicine; Referring Provider Internal Medicine Hematology & Oncology; Visit Provider Internal Medicine Hematology & Oncology
DX: C56.9 Malignant neoplasm of unspecified ovary (principal); N94.9 Unspecified condition associated with female genital organs and menstrual cycle; M48.56XA Collapsed vertebra, not elsewhere classified, lumbar region, initial encounter for fracture; M51.26 Other intervertebral disc displacement, lumbar region; K42.9 Umbilical hernia without obstruction or gangrene; Z90.49 Acquired absence of other specified parts of digestive tract; Z90.710 Acquired absence of both cervix and uterus
CPT/HCPCS: 36415; 71260; 74177; 80053; 85025; 86304; Q9967

== ENCOUNTER → 2020-02-04 13:51 | Outpatient (ROUT) | payer OTHER, SELFPAY ==
[2020-02-04 14:10] LABS: Add Manual Diff / Slide Review NO; Basophils Absolute Auto 0 /uL (0-100); Basophils Percent Auto 0.3 % (0-2); Eosinophils Absolute Auto 400 /uL (0-450); Eosinophils Percent Auto 6.2 % (2-4); Hematocrit 38.6 % (36-46); Hemoglobin 13.2 g/dL (12.0-16.0); Lymphocytes Absolute Auto 1500 /uL (1100-4500); Lymphocytes Percent Auto 23.7 % (25-40); Mean Corpuscular HGB Conc 34.1 % (30-36); Mean Corpuscular Hemoglobin 29.4 PG (26-34); Mean Corpuscular Volume 86.2 fL (80-100); Monocytes Absolute Auto 600 /uL (0-900); Neutrophils Absolute Auto 4000 /uL (1500-7000); Neutrophils Percent Auto 60.8 % (50-75); Platelet Count 298 X10^3/uL (150-400); Red Blood Cell Count 4.48 X10^6/uL (4.0-5.2); Red Cell Distribution Width 13.7 % (11.6-14.8); White Blood Cell Count 6.5 X10^3/uL (4.5-11.0)
[2020-02-04 14:24] LABS: Alanine Aminotransferase 81 IU/L (<35); Albumin 4.6 g/dL (3.5-5.0); Albumin Globulin Ratio 1.5 (1.0-2.8); Alkaline Phosphatase 97 U/L (38-126); Aspartate Aminotransferase 52 IU/L (14-36); BUN Creatinine Ratio 22.6 (6-22); Bilirubin Total 0.6 mg/dL (0.2-1.3); Blood Urea Nitrogen 14 mg/dL (7-17); Carbon Dioxide 31 mmol/L (22-32); Chloride 100 mmol/L (98-107); Estimated Glomerular Filt Rate > 60.0 mL/min (>60); Glucose 103 mg/dL (70-100); HEMOLYSIS < 15 (0-50); Potassium 4.1 mmol/L (3.4-5.1); Sodium 138 mmol/L (137-145); Total Protein 7.6 g/dL (6.3-8.2)
[2020-02-04 14:54] LABS: Cancer Antigen 125 < 5.5 U/mL (0-35)
== END ==
PROVIDERS: PCP Internal Medicine; Visit Provider Internal Medicine Hematology & Oncology
DX: C56.9 Malignant neoplasm of unspecified ovary (principal)
CPT/HCPCS: 36415; 80053; 85025; 86304

== ENCOUNTER → 2020-09-14 10:02 | Outpatient (CLI) | payer OTHER, SELFPAY ==
--- NOTE | 2020-09-14 11:07 | DI.CT.S_ITS ---
PROCEDURE: CT CHEST ABD PEL W CON INDICATIONS: ovary endometrial cancer, restaging TECHNIQUE: After the administration of oral and intravenous contrast, 5 mm thick sections acquired from the lung apices to the symphysis. 5 mm coronal and sagittal reformats were performed, with additional 7 mm coronal MIP reformats through the lungs. For radiation dose reduction, the following was used: automated exposure control, adjustment of mA and/or kV according to patient size. COMPARISON: [facility], CT, CT CHEST ABD PEL W CON, 02/04/2020, 14:31. [facility], CT, CT CHEST ABD PEL W CON, 06/22/2019, 16:14. FINDINGS: Image quality: Excellent. CHEST: Lungs and pleura: No acute airspace opacities. No pleural effusions or pneumothorax. Central and peripheral airways appear patent and normal in caliber. Mediastinum: Heart size is normal. No pericardial effusion. No mediastinal or hilar adenopathy by size criteria. Thoracic aorta and central pulmonary arteries are normal in size. Esophagus is normal in caliber. No hiatal hernia. Chest wall: No axillary or supraclavicular adenopathy by size criteria. Thyroid gland appears normal where well seen.. ABDOMEN: Solid organs: Liver is normal in size and enhancement. Gallbladder appears normal . Biliary system is non dilated. Pancreas enhances normally. Spleen is normal in size and enhancement. No adrenal nodules. Kidneys demonstrate normal size and enhancement, without hydronephrosis. Peritoneum and bowel: Bowel loops demonstrate normal wall thickness and caliber. No free fluid or air. Nodes and vessels: No retroperitoneal or mesenteric adenopathy by size criteria. Aorta and inferior vena cava are normal in size. Miscellaneous: No ventral hernias. PELVIS: Genitourinary: Bladder wall thickness is normal. Apparent prior hysterectomy. Ovaries not seen. Miscellaneous: No inguinal hernias or adenopathy. Bones: No suspicious bony lesions. No vertebral body compression fractures. IMPRESSION: No mass lesion, ascites, or adenopathy. Prior hysterectomy and presumed prior oophorectomy. No residual soft tissue abnormality is found. No sign of recurrence of endometrial carcinoma. Dictated by: Demetrius Knapp M.D. on 09/14/2020 at 14:51 Approved by: Demetrius Knapp M.D. on 09/14/2020 at 15:02
== END ==
PROVIDERS: PCP Internal Medicine; Referring Provider Internal Medicine; Visit Provider Internal Medicine Hematology & Oncology
DX: C56.9 Malignant neoplasm of unspecified ovary (principal); Z90.710 Acquired absence of both cervix and uterus
CPT/HCPCS: 71260; 74177; Q9967

== ENCOUNTER → 2020-09-18 07:14 | Outpatient (CLI) | payer OTHER, SELFPAY ==
[2020-09-18 08:39] LABS: Hemoglobin A1C% w Est Avg Glu 11.1 % (4.0-6.0)
[2020-09-18 08:51] LABS: Microalbumin Urine Random 4.3 mg/dL (0-1.6)
[2020-09-18 08:53] LABS: Alanine Aminotransferase 89 IU/L (<35); Albumin 4.4 g/dL (3.5-5.0); Albumin Globulin Ratio 1.6 (1.0-2.8); Alkaline Phosphatase 145 U/L (38-126); Aspartate Aminotransferase 55 IU/L (14-36); BUN Creatinine Ratio 25.5 (6-22); Bilirubin Total 0.5 mg/dL (0.2-1.3); Blood Urea Nitrogen 13 mg/dL (7-17); Calcium 9.6 mg/dL (8.4-10.2); Carbon Dioxide 30 mmol/L (22-32); Chloride 98 mmol/L (98-107); Cholesterol 191 mg/dL (140-199); Estimated Glomerular Filt Rate > 60.0 mL/min (>60); Globulin 2.8 g/dL (1.7-4.1); Glucose 349 mg/dL (70-100); HDL Cholesterol 46 mg/dL (40-60); HEMOLYSIS < 15 (0-50); LDL Cholesterol Calculated 93 mg/dL (<100); Sodium 134 mmol/L (137-145); Total Protein 7.2 g/dL (6.3-8.2); Triglycerides 260 mg/dL (35-150)
[2020-09-18 08:54] LABS: Creatinine Urine Random 113.3 mg/dL; Microalbumi Creatinin Ratio Ur 37.9 ug/mg CR (<30)
== END ==
PROVIDERS: PCP Internal Medicine; Referring Provider Internal Medicine; Visit Provider Internal Medicine
DX: E11.9 Type 2 diabetes mellitus without complications (principal); E78.2 Mixed hyperlipidemia
CPT/HCPCS: 80053; 80061; 82043; 82570; 83036

== ENCOUNTER → 2021-04-30 14:32 | Outpatient (CLI) | payer OTHER, SELFPAY ==
--- NOTE | 2021-04-30 14:32 | DI.CT.S_ITS ---
PROCEDURE: CT CHEST ABD PEL W CON INDICATIONS: endometrial cancer TECHNIQUE: After the administration of oral and intravenous contrast, axial sections acquired from the supraclavicular neck to the pubic symphysis. Coronal and sagittal reformats were performed. For radiation dose reduction, the following was used: automated exposure control, adjustment of mA and/or kV according to patient size. COMPARISON:[facility], CT, CT CHEST ABD PEL W CON, 08/24/2018, 15:12. [facility], CT, CT CHEST ABD PEL W CON, 09/14/2020, 11:09. FINDINGS: Image quality: Excellent. CHEST: Lungs and Airways: No consolidation or suspicious nodules. Pleura: No pneumothorax or pleural effusions. Heart: Heart size is normal. No pericardial effusion. Thoracic Vessels: The aorta and pulmonary arteries demonstrate normal size. Mediastinum and Jeanne: No enlarged lymph nodes. Esophagus: No wall thickening. No hiatal hernia. Lower Neck: No enlarged lymph nodes. Thyroid: Within normal limits. Axillae: No enlarged lymph nodes. Chest Wall: Unremarkable. ABDOMEN: Liver: Moderate hepatomegaly and hepatic steatosis. No suspicious mass. Gallbladder: Decompressed. Biliary ducts: Nondilated. Pancreas: Unremarkable. Spleen: Unremarkable. Adrenal Glands: No nodules. Kidneys and Ureters: Unremarkable. Stomach and Bowel: Stomach, small bowel loops, and colon are unremarkable. Normal appendix. Peritoneum: No abnormal intraperitoneal fluid. No free air. Ventral Wall: Tiny fat containing umbilical hernia. Abdominal Nodes: No retroperitoneal or mesenteric adenopathy by size criteria. Vessels: Aorta and inferior vena cava are normal in size. Mild abdominal aortic atherosclerotic calcification. PELVIS: Pelvic Organs: The uterus is surgically absent. Bladder: Unremarkable. Pelvic Nodes: 1.6 cm left external iliac chain low-density node, decreased compared to the prior where it measured 1.8 cm. 1.1 cm low-density right external iliac chain node, stable. Miscellaneous: No inguinal hernias are seen. Bones: Superior endplate scalloping of L3, no significant change for over a year. No new bone lesion.. IMPRESSION: 1. Continued gradual decrease in size of bilateral external iliac chain low-density lymph nodes versus seromas. 2. No evidence of new metastatic disease in the chest, abdomen, or pelvis. 3. Hepatomegaly and hepatic steatosis. Dictated by: aMlini Mojica M.D. on 04/30/2021 at 17:32 Approved by: Malini Mojica M.D. on 04/30/2021 at 17:44
== END ==
PROVIDERS: PCP Internal Medicine; Referring Provider Internal Medicine Hematology & Oncology; Visit Provider Internal Medicine Hematology & Oncology
DX: C54.1 Malignant neoplasm of endometrium (principal); K76.0 Fatty (change of) liver, not elsewhere classified
CPT/HCPCS: 71260; 74177; Q9967

== ENCOUNTER → 2022-05-28 14:33 | Outpatient (CLI) | payer OTHER, SELFPAY ==
--- NOTE | 2022-05-28 14:34 | DI.CT.S_ITS ---
PROCEDURE: CT CHEST ABD PEL W CON INDICATIONS: endometrial cancer TECHNIQUE: After the administration of oral and intravenous contrast, axial sections acquired from the supraclavicular neck to the pubic symphysis. Coronal and sagittal reformats were performed. For radiation dose reduction, the following was used: automated exposure control, adjustment of mA and/or kV according to patient size. COMPARISON: [facility], CT, CT CHEST ABD PEL W CON, 04/30/2021, 15:45. FINDINGS: Image quality: Excellent. CHEST: Lower Neck: No enlarged lymph nodes. Thyroid: Within normal limits. Axillae: No enlarged lymph nodes. Chest Wall: Unremarkable. Lungs and Airways: No consolidation or suspicious nodules. Pleura: No pneumothorax or pleural effusions. Heart: Heart size is normal. No pericardial effusion. Thoracic Vessels: The aorta and pulmonary arteries demonstrate normal size. Mediastinum and Jeanne: No enlarged lymph nodes. Esophagus: No wall thickening. No hiatal hernia. ABDOMEN: Liver: Mild hepatic steatosis, unchanged compared to prior CT. No mass or intrahepatic biliary ductal dilatation. Gallbladder: Unremarkable. Biliary ducts: Unremarkable. Pancreas: Unremarkable. Spleen: Unremarkable. Adrenal Glands: Unremarkable. Kidneys and Ureters: Unremarkable. Stomach and Bowel: The distal esophagus is normal. The stomach contains food matter. No gastric wall thickening. Peritoneum: No abnormal intraperitoneal fluid. No free air. Ventral Wall: 2 fat containing midline ventral hernias are seen with no evidence of incarceration. Abdominal Nodes: No retroperitoneal or mesenteric adenopathy by size criteria. Vessels: The aorta has atherosclerosis with no aneurysmal dilatation. PELVIS: Pelvic Organs: Status post hysterectomy. No evidence of local recurrence. No adenopathy. Bladder: Unremarkable. Pelvic Nodes: 1.6 centimeter left external iliac chain low-density lymph node, unchanged compared to prior CT on 04/30/2021. 1.1 centimeter low-density right external iliac chain lymph node is also unchanged compared to prior CT on 04/30/2021. Miscellaneous: No inguinal hernias are seen. Bones: Degenerative changes with no focal abnormality. There is superior endplate scalloping of L3. IMPRESSION: 1. Bilateral external iliac chain lymph nodes are unchanged. 2. No evidence of new metastatic disease to the chest, abdomen, or pelvis. 3. Mild hepatic steatosis. 4. Fat containing ventral hernias. Dictated by: Ced Villar M.D. on 05/28/2022 at 17:14 Approved by: Ced Villar M.D. on 05/28/2022 at 17:23
== END ==
PROVIDERS: PCP Internal Medicine; Referring Provider Internal Medicine Hematology & Oncology; Visit Provider Internal Medicine Hematology & Oncology
DX: C54.1 Malignant neoplasm of endometrium (principal); K76.0 Fatty (change of) liver, not elsewhere classified; K43.9 Ventral hernia without obstruction or gangrene
CPT/HCPCS: 71260; 74177; Q9967

== ENCOUNTER → 2022-08-11 16:13 | Outpatient (CLI) | payer OTHER, SELFPAY ==
[2022-08-11 17:30] LABS: Influenza A - CEPHEID Flu A NEGATIVE (NEGATIVE); Influenza B - CEPHEID Flu B NEGATIVE (NEGATIVE); Respiratory Syncytial Virus Negative (Negative)
[2022-08-11 17:38] LABS: COVID-19 CEPHEID 4-PLEX PCR Negative (Negative)
== END ==
PROVIDERS: PCP Internal Medicine; Visit Provider Student in an Organized Health Care Education/Training Program
DX: R05.1 Acute cough (principal)
CPT/HCPCS: 0241U

== ENCOUNTER → 2023-07-17 07:06 | Outpatient (CLI) | payer OTHER, SELFPAY | PROVIDERS: PCP Internal Medicine; Visit Provider Physician Assistant | DX: R30.0 Dysuria (principal) | CPT/HCPCS: 87086 ==